=== PATIENT | male | born 1965 | race Caucasian/White ===

== ENCOUNTER 2017-12-24 08:51 | Day surgery (SDC) | payer BC ==
[2017-12-24 10:49] VITALS: BP 128/84; PULSE 89; RESP 20; TEMP 97.6; O2SAT 92
== END 2017-12-24 11:18 | disposition home or self-care (01) ==
LOC: SURG 08:51
PROVIDERS: ATTEND Surgery
DX: Z12.11 Encounter for screening for malignant neoplasm of colon (principal); K57.32 Diverticulitis of large intestine without perforation or abscess without bleeding; D12.8 Benign neoplasm of rectum
CPT/HCPCS: 99001; J2704